=== PATIENT | male | born 1995 | race American Indian/Alaskan Native ===

== ENCOUNTER 2018-03-25 03:48 | Emergency (ER) | payer SELFPAY ==
[2018-03-25 03:58] VITALS: BP 123/79
[2018-03-25] MEDS ORDERED: ASPIRIN PO ONE (03:58)
--- NOTE | 2018-03-25 04:40 | XRay Report ---
FINAL REPORT PROCEDURE: XR CHEST ROUTINE 2V TECHNIQUE: PA and lateral chest radiographs were obtained. CPT 32186 HISTORY: dizziness COMPARISON: No prior studies are available for comparison. FINDINGS: Heart: Normal. Mediastinum/Vessels: Normal. Lungs/Pleural space: Normal. Bony thorax: No acute osseous abnormality. Other: IMPRESSION: Normal examination.
[2018-03-25 04:56] LABS: Basophils % (Auto) 0.2 % (0.0-1.8); Eosinophils # (Auto) 0.1 K/mm3 (0.0-0.4); Eosinophils % (Auto) 0.9 % (0.0-4.3); Hematocrit 48.8 % (35.5-45.6); Hemoglobin 16.2 gm/dl (11.8-15.2); Lymphocytes # (Auto) 1.8 K/mm3 (1.2-5.4); Lymphocytes % (Auto) 14.7 % (13.4-35.0); Mean Corpuscular HGB Conc 33 % (32-34); Mean Corpuscular Hemoglobin 31 pg (28-32); Mean Corpuscular Volume 92 fl (84-94); Monocytes # (Auto) 0.8 K/mm3 (0.0-0.8); Monocytes % (Auto) 6.1 % (0.0-7.3); Platelet Count 191 K/mm3 (140-440); Red Cell Distribution Width 13.3 % (13.2-15.2)
[2018-03-25] MEDS ORDERED: ATIVAN PO ONE (05:03)
[2018-03-25] MEDS ORDERED: ZOFRAN ODT PO ONE (05:03)
[2018-03-25] MEDS ORDERED: TYLENOL PO ONE (05:04)
[2018-03-25 05:09] LABS: BUN/Creatinine Ratio 11; Blood Urea Nitrogen 10 mg/dL (9-20); Hemolysis Index 3
--- NOTE | 2018-03-25 05:13 | Emergency Department Report ---
HPI - General Chief Complaint: Chest Pain Time Seen by Provider: 03/25/18 04:53 - HPI HPI: The patient is a 22-year-old male who presents for evaluation of chest pain. The patient reports that onset of midsternal chest pain one hour prior to arrival, tightness in quality, moderate to severe, exacerbated with deep breaths , and associated with racing of the heart. He states that his symptoms began shortly after smoking marijuana. The patient denies fever, neck pain, parasthesias, dyspnea, cough, hemoptysis, palpitations, dizziness, syncope, unilateral leg swelling, calf muscle pain. Patient also denies cocaine or other stimulant use, history of DVT or PE, recent immobilization, or history of cancer. ED Past Medical Hx - Past Medical History Previous Medical History?: No - Surgical History Past Surgical History?: Yes Additional Surgical History: Hand - Social History Smoking Status: Current Every Day Smoker Substance Use Type: Alcohol, Marijuana, Other ED Review of Systems ROS: Stated complaint: MH Other details as noted in HPI Constitutional: denies: fever ENT: denies: throat or neck pain Respiratory: denies: cough, shortness of breath Cardiovascular: reports chest pain Endocrine: denies unexplained weight loss or gain Gastrointestinal: denies: abdominal pain, nausea Genitourinary: denies: dysuria Musculoskeletal: denies: leg swelling Skin: denies: rash Neurological: denies: headache Hematological/Lymphatic: denies: easy bleeding or easy bruising Psych: denies sadness or hopelessness Physical Exam - Physical Exam Vital Signs: Vital Signs 03/25/18 03:48 Temperature 98.6 F Pulse Rate 92 H Respiratory 20 Rate Blood Pressure 123/79 O2 Sat by Pulse 96 Oximetry Physical Exam: General: well-nourished, well-developed, no acute distress Head: Normocephalic, atraumatic Eyes: normal sclera ENT: Mucous membranes are pale and dry Neck: No neck stiffness, no cervical adenopathy Respiratory: Breath sounds equal bilaterally, no wheezing, rales, or rhonchi Cardio: S1 and S2 present, no murmurs, rubs, gallops, capillary refill is delayed Abdomen: Normoactive bowel sounds, soft abdomen, no rigidity, no guarding or rebound tenderness Chest WALL/Back: No tenderness to palpation of the chest wall, no CVA tenderness with percussion Musc: No pitting edema Skin: No rash Neuro: no facial drooping, normal speech Psych: Normal affect ED Course Vital Signs 03/25/18 03:48 Temperature 98.6 F Pulse Rate 92 H Respiratory 20 Rate Blood Pressure 123/79 O2 Sat by Pulse 96 Oximetry ED Medical Decision Making - Lab Data Result diagrams: 03/25/18 04:32 - Medical Decision Making The patient was seen and examined by myself. The patient is placed on a groundwater monitoring technician and continuous pulse ox. On initial evaluation, the patient was found to be in no distress. EKG was negative for findings suggestive of acute cardiac infarct. Labs and imaging are obtained. The patient was offered a tablet of Ativan and Tylenol for his palpitations, and he declined. Chest x- ray is negative for pneumothorax, focal consolidation, pulmonary vascular congestion, pleural effusion, or other obvious acute cardiopulmonary disease process. Lab results revealed elevated RBC, hemoglobin, hematocrit, consistent with hemoconcentration exam findings of dehydration, and otherwise labs were non -concerning including levels of troponin, electrolytes, renal function. The patient was offered normal saline fluid bolus for treatment of his dehydration and lightheadedness and he declined. The patient was reevaluated and reported that their symptoms were markedly improved. As the patient has a TIN risk score less than 2, and a well's score less than 2, the patient is at low risk of ACS or pulmonary emboli etiology of their symptoms. The patient is stable for discharge with outpatient follow-up. The patient is given follow-up and return instructions. The patient expressed understanding and agreed with the plan. The patient is discharged in stable condition. Critical care attestation.: If time is entered above; I have spent that time in minutes in the direct care of this critically ill patient, excluding procedure time. ED Disposition Clinical Impression: Acute chest pain, Palpitations, Dehydration, Orthostatic lightheadedness Disposition: DC-01 TO HOME OR SELFCARE Is pt being admited?: No Does the pt Need Aspirin: No Condition: Stable Instructions: Chest Pain (ED), Palpitations (ED), Dehydration (ED), Lightheadedness (ED) Referrals: PRIMARY CARE, [Primary Care Provider] - 3-5 Days [facility] [Provider Group] - 3-5 Days Time of Disposition: 05:04
[2018-03-25 05:36] LABS: Amorphous Crystals,Urine 1+; Bilirubin,Urine NEG (Negative); Blood,Urine NEG (Negative); Color,Urine Yellow (Yellow); Mucus,Urine 2+ /HPF; Protein,Urine <15 mg/dL mg/dL (Negative)
[2018-03-25 05:37] LABS: Amphetamine Screen,Urine PRESUMPTIVE NEGATIVE; Benzodiazepines Screen,Urine PRESUMPTIVE NEGATIVE; Cocaine Screen,Urine PRESUMPTIVE NEGATIVE; Methadone Screen,Urine PRESUMPTIVE NEGATIVE; Opiate Screen,Urine PRESUMPTIVE NEGATIVE
[2018-03-25 05:52] LABS: Cannabinoid Screen,Urine PRESUMPTIVE POSITIVE
== END 2018-03-25 05:19 | disposition home or self-care (01) ==
LOC: EDBD → ED 03:48
DX: R07.89 Other chest pain (principal); R00.2 Palpitations; E86.0 Dehydration; R42 Dizziness and giddiness; F17.200 Nicotine dependence, unspecified, uncomplicated; F12.10 Cannabis abuse, uncomplicated; Z79.899 Other long term (current) drug therapy
CPT/HCPCS: 36415; 71046; 80048; 80307; 81001; 84484; 85025; 93005; 93010; 99284; G0480; 80320